=== PATIENT | female | born 1965 | race Caucasian/White ===

== ENCOUNTER 2019-07-26 02:38 | Inpatient (IN) | payer OTHER ==
[~2019-07-26] VITALS: Ht 160 cm; Wt 65.8 kg
[2019-07-26 02:40] VITALS: BP 119/64
[2019-07-26 04:45] VITALS: BP 104/56
[2019-07-26 05:00] VITALS: BP 127/78
[2019-07-26] MEDS ORDERED: KEPPRA500 MG PO (05:23)
[2019-07-26] MEDS ORDERED: HYDROCODONE-AC1 EAC1 PO (05:24)
[2019-07-26] MEDS ORDERED: PAROXETINE10 MG PO (05:25)
[2019-07-26] MEDS ORDERED: ELIQUIS5 M1 PO (05:28)
[2019-07-26] MEDS ORDERED: BUTALBIT-ACETA1 EACH PO (05:28)
[2019-07-26] MEDS ORDERED: KLONOPIN0.5 MG PO ×2 (05:31→05:32)
[2019-07-26] MEDS ORDERED: LOPRESSOR25 MG PO (05:32)
[2019-07-26] MEDS ORDERED: ROBAXIN-750750 MG PO (05:33)
[2019-07-26] MEDS ORDERED: NICODERM CQ1 EAC2 TD (05:34)
[2019-07-26 06:28] LABS: BASO # 0.1 10*3/uL (0.0-0.1); BASO % 0.7 % (0.0-1.0); EOS # 0.9 10*3/uL (0.0-0.4); EOS % 10.2 % (1.0-4.0); HEMATOCRIT 41.6 % (37.0-47.0); LYMPH % 22.4 % (27.0-41.0); MEAN CELL VOLUME 96.3 fl (81.0-99.0); MEAN CORPUSCULAR HGB 30.6 pg (27.0-31.0); MEAN CORPUSCULAR HGB CONC 31.7 g/dl (33.0-37.0); MEAN PLATELET VOLUME 9.4 fl (9.6-12.3); MONO # 0.9 10*3/uL (0.1-1.0); MONO % 9.9 % (3.0-9.0); NEUT # 5.1 10*3/uL (2.3-7.9); NEUT % 55.5 % (47.0-73.0); PLATELET COUNT AUTOMATED 428 10*3/uL (130-400); RED BLOOD COUNT 4.32 10*6/uL (4.10-5.10); RED CELL DISTRI WIDTH 16.5 % (0-14.5); WHITE BLOOD COUNT 9.1 10*3/uL (4.8-10.8)
[2019-07-26 06:57] LABS: ALBUMIN 2.4 gm/dl (3.1-4.5); BUN 6 mg/dl (7-24); CHLORIDE 101 mmol/L (98-107); CHOLESTEROL 241 mg/dL (<200); CREATININE 0.25 mg/dL (0.55-1.02); POTASSIUM 3.1 mmol/L (3.5-5.1); SGOT/AST 16 IU/L (3-35); SGPT/ALT 16 U/L (12-78); SODIUM 136 mmol/L (136-145); TRIGLYCERIDES 141 mg/dl (<150); VLDL CHOLESTEROL 28 mg/dL (6-40)
[2019-07-26 07:04] LABS: ALKALINE PHOSPHATASE 130 U/L (45-117); FREE T4 1.03 ng/dl (0.76-1.46); HDL CHOLESTEROL 53 mg/dl (40-60); LDL CHOLESTEROL 160 mg/dL (9-159); TOTAL PROTEIN 6.8 gm/dL (6.4-8.2)
[2019-07-26 08:00] VITALS: BP 105/68
[2019-07-26 13:24] LABS: VITAMIN D, 25-HYDROXY 32.6 ng/mL (30-100)
[2019-07-26 16:00] VITALS: BP 96/70
[2019-07-26 20:00] VITALS: BP 120/65
[2019-07-27] VITALS: BP 136/80
[2019-07-27 05:47] LABS: BUN 5 mg/dl (7-24); CHLORIDE 101 mmol/L (98-107); POTASSIUM 3.2 mmol/L (3.5-5.1); SODIUM 137 mmol/L (136-145)
[2019-07-27 06:01] VITALS: BP 118/71
[2019-07-27 06:20] LABS: BASO # 0.1 10*3/uL (0.0-0.1); BASO % 0.8 % (0.0-1.0); EOS % 12.3 % (1.0-4.0); HEMATOCRIT 39.9 % (37.0-47.0); LYMPH # 2.2 10*3/uL (1.3-4.4); LYMPH % 25.8 % (27.0-41.0); MEAN CELL VOLUME 95.7 fl (81.0-99.0); MEAN CORPUSCULAR HGB 30.2 pg (27.0-31.0); MEAN CORPUSCULAR HGB CONC 31.6 g/dl (33.0-37.0); MEAN PLATELET VOLUME 9.4 fl (9.6-12.3); MONO % 11.9 % (3.0-9.0); NEUT % 48.1 % (47.0-73.0); PLATELET COUNT AUTOMATED 454 10*3/uL (130-400); RED BLOOD COUNT 4.17 10*6/uL (4.10-5.10); RED CELL DISTRI WIDTH 16.6 % (0-14.5); WHITE BLOOD COUNT 8.4 10*3/uL (4.8-10.8)
[2019-07-27 08:00] VITALS: BP 118/74
[2019-07-27 09:33] LABS: CLARITY CLOUDY (CLEAR); COLOR YELLOW (YELLOW); GLUCOSE NEGATIVE (NEGATIVE)
[2019-07-27 09:34] LABS: BACTERIA 4+; BILIRUBIN NEGATIVE (NEGATIVE); BLOOD 1+ (NEGATIVE); CALCIUM OXALATE CRYSTALS 3+; KETONE 2+ (NEGATIVE); LEUKO ESTERASE 2+ (NEGATIVE); NITRITE POSITIVE (NEGATIVE); RBC 16-20 rbc/hpf (0-2); SPECIFIC GRAVITY 1.025 (1.005-1.030); UROBILINOGEN 0.2 E.U./dl (0.2-1.0); WBC TNTC wbc/hpf (0-5)
[2019-07-27 12:00] VITALS: BP 103/65
[2019-07-27 16:00] VITALS: BP 107/69
[2019-07-27 20:00] VITALS: BP 107/78
[2019-07-28] VITALS: BP 109/70
[2019-07-28 08:00] VITALS: BP 117/77
[2019-07-28 12:00] VITALS: BP 127/79
[2019-07-28] MEDS ORDERED: CIPRO500 MG PO (16:18)
[2019-07-28] MEDS ORDERED: CLONAZEPAM0.5 M2 PO ×2 (16:18)
== END 2019-07-28 17:12 | disposition other institution (70) | DRG 861 ==
LOC: ED 02:38 → 4NE 04:04 → EDHOLD 04:04 → 4NE 04:19
PROVIDERS: Internal Medicine; ADMIT Internal Medicine
DX: G89.3 Neoplasm related pain (acute) (chronic) (principal); N39.0 Urinary tract infection, site not specified; F32.9 Major depressive disorder, single episode, unspecified; R26.2 Difficulty in walking, not elsewhere classified; I10 Essential (primary) hypertension; F41.9 Anxiety disorder, unspecified; K21.9 Gastro-esophageal reflux disease without esophagitis; D47.3 Essential (hemorrhagic) thrombocythemia; E87.6 Hypokalemia; E53.8 Deficiency of other specified B group vitamins; E43 Unspecified severe protein-calorie malnutrition; A59.9 Trichomoniasis, unspecified; C34.90 Malignant neoplasm of unspecified part of unspecified bronchus or lung; C79.31 Secondary malignant neoplasm of brain; I69.954 Hemiplegia and hemiparesis following unspecified cerebrovascular disease affecting left non-dominant side; Z88.8 Allergy status to other drugs, medicaments and biological substances; Z79.899 Other long term (current) drug therapy; Z79.01 Long term (current) use of anticoagulants; Z87.891 Personal history of nicotine dependence; Z68.25 Body mass index [BMI] 25.0-25.9, adult